=== PATIENT | female | born 1950 | race Caucasian/White ===

== ENCOUNTER → 2017-07-17 | Outpatient (CLI) | payer OTHER, MEDICARE | LOC: CFH 09:46 | PROVIDERS: ATTEND Obstetrics & Gynecology | DX: Z12.31 Encounter for screening mammogram for malignant neoplasm of breast (principal) | CPT/HCPCS: 77063; 77067 ==

== ENCOUNTER → 2017-07-26 | Outpatient (CLI) | payer OTHER, MEDICARE | LOC: CFH 11:06 | PROVIDERS: ATTEND Obstetrics & Gynecology | DX: Z02.9 Encounter for administrative examinations, unspecified (principal) ==

== ENCOUNTER 2018-10-01 11:56 | Outpatient (CLI) | payer MEDICARE, OTHER | END 2018-10-01 23:59 | disposition home or self-care (01) | LOC: CFH 11:56 | PROVIDERS: ATTEND Obstetrics & Gynecology | DX: N63.20 Unspecified lump in the left breast, unspecified quadrant (principal) | CPT/HCPCS: 76642; 77066; G0279 ==